=== PATIENT | female | born 1985 | race African-American/Black ===

== ENCOUNTER 2024-04-26 13:52 | Emergency (ER) | payer MEDICAID ==
[~2024-04-26] VITALS: Ht 157.5 cm; Wt 61.8 kg
[2024-04-26 14:06] VITALS: TEMP 98.3
[2024-04-26] MEDS ORDERED: IBUP-1492 PO (15:48)
[2024-04-26] MEDS ORDERED: AMOX1TAB16 PO (15:48)
[2024-04-26] MEDS: IBUPROFEN 600 MG TABLET PO ONE (15:51)
[2024-04-26] MEDS: AMOX TR/POT CLAV 875 MG/125 MG TABLET PO ONE (15:52)
[2024-04-26 16:18] VITALS: BP 109/61; PULSE 74; RESP 18
== END 2024-04-26 16:19 | disposition home or self-care (01) ==
LOC: EMS 13:52
DX: K04.7 Periapical abscess without sinus (principal)
CPT/HCPCS: 99283